=== PATIENT | male | born 1955 | race Caucasian/White ===

== ENCOUNTER → 2017-11-07 | Outpatient (CLI) | payer MEDICARE ==
[~2017-11-07] MED LIST: HYDACE5 PO; HYDACE7.5; METH10
[2017-11-07 17:16] LABS: U Amphetamine Screen Not Detected; U Barbituate Screen Not Detected; U Benzodiazapine Screen Not Detected; U Buprenorphine Screen Not Detected; U Cannabinoids Screen Not Detected; U Cocaine Screen Not Detected; U Methadone Screen DETECTED; U Methamphetamine Screen Not Detected; U Opiates Screen DETECTED; U Oxycodone Screen Not Detected; U Phencyclidine Screen Not Detected; U Propoxyphene Screen Not Detected
== END | disposition home or self-care (01) ==
LOC: LAB SHORT 12:00 → LAB 12:00
PROVIDERS: Internal Medicine Hematology & Oncology
DX: Z51.81 Encounter for therapeutic drug level monitoring (principal); Z79.899 Other long term (current) drug therapy

== ENCOUNTER → 2018-09-10 | Outpatient (CLI) | payer OTHER, MEDICARE ==
[2018-09-10 16:04] LABS: Protein, Urine Quantitative 6.5 mg/dL (0.0-11.9)
[2018-09-10 16:14] LABS: Microalbumin, Urine Quant. <5.000 mg/L (0.000-20.000)
== END | disposition home or self-care (01) ==
LOC: LAB SHORT 05:41 → LAB 05:41
PROVIDERS: Internal Medicine Nephrology
DX: N18.2 Chronic kidney disease, stage 2 (mild) (principal); D63.1 Anemia in chronic kidney disease; N25.81 Secondary hyperparathyroidism of renal origin; E55.9 Vitamin D deficiency, unspecified; E78.00 Pure hypercholesterolemia, unspecified; R76.9 Abnormal immunological finding in serum, unspecified; R94.5 Abnormal results of liver function studies; R94.6 Abnormal results of thyroid function studies
CPT/HCPCS: 81050; 82043; 82570; 84156

== ENCOUNTER 2018-09-15 05:33 | Inpatient (IN) | payer OTHER, MEDICARE ==
[~2018-09-15] VITALS: Ht 182.9 cm; Wt 103.5 kg
[~2018-09-15 05:33] MED LIST changes: -METH10; +METH10 PO
[2018-09-15] MEDS ORDERED: FURO40 PO (05:46)
[2018-09-15] MEDS ORDERED: Fentanyl1 EAC2 TOP (05:46)
[2018-09-15] MEDS ORDERED: POTCHL10ER PO (05:47)
[2018-09-15] MEDS ORDERED: XARELTO20 MG PO (05:48)
[2018-09-15] MEDS ORDERED: METO2.5 PO (05:49)
[2018-09-15] MEDS ORDERED: BUME2 PO (05:49)
[2018-09-15 06:13] LABS: BASOPHILS ABSOLUTE AUTO 0.03 K/mm3 (0.00-0.23); BASOPHILS PERCENT AUTO 0 % (0-2); EOSINOPHILS ABSOLUTE AUTO 0.02 K/mm3 (0.00-0.68); EOSINOPHILS PERCENT AUTO 0 % (0-6); Hemoglobin 14.4 g/dL (13.5-17.5); IMMATURE GRAN ABSOLUTE AUTO 0.09 K/mm3 (0.00-0.10); IMMATURE GRAN PERCENT AUTO 1 % (0-1); LYMPHOCYTES ABSOLUTE AUTO 1.41 K/mm3 (0.84-5.20); LYMPHOCYTES PERCENT AUTO 13 % (21-46); MONOCYTES ABSOLUTE AUTO 1.01 K/mm3 (0.16-1.47); MONOCYTES PERCENT AUTO 9 % (4-13); Mean Corpuscular HGB 32.5 pg (26.0-34.0); Mean Corpuscular HGB Conc 35.1 g/dL (31.5-36.5); Mean Corpuscular Volume 93 fL (80-100); Mean Platelet Volume 9.8 fL (9.1-12.4); NEUTROPHILS ABSOLUTE AUTO 8.35 K/mm3 (1.96-9.15); NEUTROPHILS PERCENT AUTO 77 % (41-73); Platelet Count 245 K/mm3 (150-400); RDW Coefficient Variation 14.1 % (11.7-14.2); RDW Standard Deviation 48.2 fL (35.1-46.3); Red Blood Cell Count 4.43 M/mm3 (4.30-5.90); White Blood Cell Count 10.91 K/mm3 (4.00-11.30)
[2018-09-15 06:38] LABS: Alanine Aminotransfer (ALT/SGP 125 U/L (12-78); Albumin, Blood 3.4 g/dL (3.4-5.0); Albumin/Globulin Ratio 0.8 (0.8-1.8); Alk Phos 105 U/L (50-136); Anion Gap 6 mmol/L (6-16); Aspartate Aminotrans (AST/SGOT 155 U/L (12-37); Bilirubin, Total 1.2 mg/dL (0.1-1.0); Blood Urea Nitrogen 14 mg/dL (8-24); Bun/Creatinine Ratio 19.5 (12.0-20.0); CO2, Blood 41 mmol/L (21-32); Chloride, Blood 74 mmol/L (98-108); Creatinine, Blood 0.72 mg/dL (0.60-1.20); Globulin, Blood 4.4 g/dL (2.2-4.0); Glomerular Filtration Rate >60 (60-); Glucose, Blood 131 mg/dL (70-99); Potassium, Blood 2.2 mmol/L (3.5-5.5); Sodium, Blood 121 mmol/L (136-145); Total Protein, Blood 7.8 g/dL (6.4-8.2)
[2018-09-15 13:19] LABS: Albumin, Blood 3.3 g/dL (3.4-5.0); Anion Gap 7 mmol/L (6-16); Blood Urea Nitrogen 15 mg/dL (8-24); Bun/Creatinine Ratio 20.1 (12.0-20.0); CO2, Blood 38 mmol/L (21-32); CPK Creatine Kinase 243 U/L (39-308); Chloride, Blood 78 mmol/L (98-108); Creatinine, Blood 0.75 mg/dL (0.60-1.20); Glomerular Filtration Rate >60 (60-); Glucose, Blood 126 mg/dL (70-99); Magnesium, Blood 2.2 mg/dL (1.6-2.4); Phosphorus, Blood 3.2 mg/dL (2.5-4.9); Potassium, Blood 2.8 mmol/L (3.5-5.5); Sodium, Blood 123 mmol/L (136-145)
[2018-09-15 16:02] LABS: Osmolality, Serum 268 mos/KG (275-300)
[2018-09-15] MEDS ORDERED: TRAZ50 PO (18:28)
[2018-09-15 18:58] LABS: Albumin, Blood 3.1 g/dL (3.4-5.0); Anion Gap 7 mmol/L (6-16); Blood Urea Nitrogen 15 mg/dL (8-24); Bun/Creatinine Ratio 21.6 (12.0-20.0); CO2, Blood 38 mmol/L (21-32); Chloride, Blood 82 mmol/L (98-108); Creatinine, Blood 0.69 mg/dL (0.60-1.20); Glomerular Filtration Rate >60 (60-); Glucose, Blood 121 mg/dL (70-99); Phosphorus, Blood 2.1 mg/dL (2.5-4.9); Potassium, Blood 2.7 mmol/L (3.5-5.5); Sodium, Blood 127 mmol/L (136-145)
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
--- NOTE | 2018-09-16 01:38 | NUR ---
URINE SPECIMEN OBTAINED AND SENT.
[2018-09-16 02:24] LABS: Potassium, Urine, Random 31.2 mmol/L (12.0-75.0)
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
[2018-09-16 04:53] LABS: Hematocrit 40.7 % (37.0-53.0); Hemoglobin 13.6 g/dL (13.5-17.5); Mean Corpuscular HGB 31.6 pg (26.0-34.0); Mean Corpuscular HGB Conc 33.4 g/dL (31.5-36.5); Mean Corpuscular Volume 95 fL (80-100); Mean Platelet Volume 9.7 fL (9.1-12.4); Platelet Count 204 K/mm3 (150-400); RDW Coefficient Variation 15.1 % (11.7-14.2); RDW Standard Deviation 51.8 fL (35.1-46.3); White Blood Cell Count 9.48 K/mm3 (4.00-11.30)
[2018-09-16 05:12] LABS: HBSAG SCREEN Negative (Negative); HEP A AB, IGM Negative (Negative); HEP B CORE AB, IGM Negative (Negative); HEP C VIRUS AB <0.1 (0.0-0.9)
[2018-09-16 05:45] LABS: Alanine Aminotransfer (ALT/SGP 133 U/L (12-78); Albumin, Blood 3.3 g/dL (3.4-5.0); Albumin/Globulin Ratio 0.9 (0.8-1.8); Alk Phos 92 U/L (50-136); Anion Gap 3 mmol/L (6-16); Aspartate Aminotrans (AST/SGOT 176 U/L (12-37); Bilirubin, Direct 0.4 mg/dL (0.0-0.3); Bilirubin, Indirect 0.9 mg/dL (0.1-0.7); Bilirubin, Total 1.3 mg/dL (0.1-1.0); Blood Urea Nitrogen 16 mg/dL (8-24); Bun/Creatinine Ratio 20.5 (12.0-20.0); CO2, Blood 41 mmol/L (21-32); Calcium, Blood 8.7 mg/dL (8.5-10.1); Chloride, Blood 88 mmol/L (98-108); Creatinine, Blood 0.78 mg/dL (0.60-1.20); Globulin, Blood 3.8 g/dL (2.2-4.0); Glomerular Filtration Rate >60 (60-); Glucose, Blood 94 mg/dL (70-99); Magnesium, Blood 2.6 mg/dL (1.6-2.4); Potassium, Blood 2.9 mmol/L (3.5-5.5); Sodium, Blood 132 mmol/L (136-145); Total Protein, Blood 7.1 g/dL (6.4-8.2)
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
--- NOTE | 2018-09-16 18:21 | NUR ---
PATIENTS K+ UP THIS SHIFT. HE TOLERATED IV K+ WELL. WORKED WITH PT THIS SHIFT AND AMBULATED WITH HIS WALKER. HE HAS HAD NO COMPLAINTS OF PAIN, SOB, OR NV THIS SHIFT. HE IS ALERT AND ORIENTED AND COMPLIANT WITH ALL CARES.
--- NOTE | 2018-09-17 04:17 | NUR ---
09/17/18 0415 MEDICATED FOR RT. SHOULDER PAIN. VITALS STABLE. TAKING ORAL INTAKE WELL. VOIDING QS CLEAR YELLOW URINE.
[2018-09-17 06:18] LABS: Anion Gap 4 mmol/L (6-16); Blood Urea Nitrogen 19 mg/dL (8-24); Bun/Creatinine Ratio 25.6 (12.0-20.0); CO2, Blood 38 mmol/L (21-32); Calcium, Blood 8.8 mg/dL (8.5-10.1); Chloride, Blood 92 mmol/L (98-108); Creatinine, Blood 0.74 mg/dL (0.60-1.20); Glomerular Filtration Rate >60 (60-); Glucose, Blood 85 mg/dL (70-99); Potassium, Blood 3.1 mmol/L (3.5-5.5); Sodium, Blood 134 mmol/L (136-145)
--- NOTE | 2018-09-17 12:16 | NUR ---
Spiritual care visit conducted. Patient was sitting up in bed and alert when I entered patient's room. Patient's Ray is bedside. Patient is delighted that he is going home today. Patient and Ray share about their history together and the ups and downs they face in life. They both have great linh and strength which they attribute to their jamarcus in God. 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 I listened and highlighted that the jamarcus that brought them through in the past will serve them well as they face their current struggles. I provided companionship and prayer. They thanked me for my time, care and ministry.
--- NOTE | 2018-09-17 15:16 | NUR ---
PT WAS DISCHARGED HOME WITH HIS SPOUSE AT 1430 TODAY.
== END 2018-09-17 15:00 | disposition home or self-care (01) | DRG 641 ==
LOC: ER 05:33 → ICUW 05:34 → ERHOLD 09:57 → MEDS 20:40 → ENPENDDIS 09-17 10:00 → MEDS 09-17 15:00
PROVIDERS: Emergency Medicine; ADMIT Internal Medicine
DX: E87.1 Hypo-osmolality and hyponatremia (principal); E87.6 Hypokalemia; G89.4 Chronic pain syndrome; Z86.718 Personal history of other venous thrombosis and embolism; K21.9 Gastro-esophageal reflux disease without esophagitis; E78.5 Hyperlipidemia, unspecified; I10 Essential (primary) hypertension; W19.XXXA Unspecified fall, initial encounter; R40.2412 Glasgow coma scale score 13-15, at arrival to emergency department; S09.90XA Unspecified injury of head, initial encounter
CPT/HCPCS: 36415; 70450; 80048; 80053; 80069; 80074; 80076; 82436; 82550; 83735; 83930; 83935; 84132; 84133; 84300; 84484; 85025; 85027; 93005; 93010; 96365; 96366; 96375; 96376; 97116; 97161; 97165; 97535; 99285-25; J2405; J3480; J7030